=== PATIENT | male | born 1975 | race Caucasian/White ===

== ENCOUNTER 2018-08-06 09:39 | Emergency (ER) | payer SELFPAY ==
[2018-08-06 09:55] VITALS: BP 106/62; PULSE 77; TEMP 98.6; BMI 24.4
--- NOTE | 2018-08-06 10:45 | PDOC ---
History of Present Illness - General Chief Complaint: Pain Stated Complaint: SHOULDER PAIN Time Seen by Provider: 08/06/18 10:11 History Source: Patient Exam Limitations: No Limitations - History of Present Illness Initial Comments: 08/06/18 10:40 42 yr male with c/o stiff neck on the right side radiates to the right top of the shoulder for one week worse when waking up , worse with movement denies trauma. 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 no fever no cough no recent URI . Past History - Travel Traveled outside of the country in the last 30 days: No - Past Medical History Allergies/Adverse Reactions: Allergies Allergy/AdvReac Type Severity Reaction Status Date / Time No Known Allergies Allergy Verified 08/06/18 09:53 Home Medications: Ambulatory Orders Cyclobenzaprine HCl [Flexeril -] 10 mg PO TID PRN #21 tablet 08/06/18 Ibuprofen 800 mg PO TID PRN #20 tablet 08/06/18 COPD: No - Immunization History Immunization Up to Date: Yes - Suicide/Smoking/Psychosocial Hx Smoking History: Current every day smoker Number of Cigarettes Smoked Daily: 6 Information on smoking cessation initiated: No Hx Alcohol Use: No Drug/Substance Use Hx: No Trauma Specific PMHX - Complaint Specific PMHX Arthritis: No Back Injury: No Neck Injury: No Hx Sacro Iliac Joint Dysfunction: No Review of Systems - Review of Systems Able to Perform ROS?: Yes Is the patient limited Liberian proficient: No Constitutional: No: Symptoms Reported HEENTM: No: Symptoms Reported Respiratory: No: Symptoms reported Cardiac (ROS): No: Symptoms Reported ABD/GI: No: Symptoms Reported : No: Symptoms Reported Musculoskeletal: Yes: Symptoms Reported *Physical Exam - Vital Signs Last Vital Signs Temp Pulse Resp BP Pulse Ox 98.6 F 77 18 106/62 98 08/06/18 09:53 08/06/18 09:53 08/06/18 09:53 08/06/18 09:53 08/06/18 09:53 - Physical Exam General Appearance: Yes: Nourished, Appropriately Dressed HEENT: positive: EOMI, MIRANDA, Normal ENT Inspection, TMs Normal, Pharynx Normal Neck: positive: Supple. negative: Tender Respiratory/Chest: positive: Lungs Clear, Normal Breath Sounds. negative: Chest Tender Cardiovascular: positive: Regular Rhythm, Regular Rate Musculoskeletal: positive: Normal Inspection, Decreased Range of Motion, Muscle Spasm (right sternocelmastoid muscle ttp , neg midline tenderness). negative: Vertebral Tenderness Extremity: positive: Normal Capillary Refill, Normal Inspection, Normal Range of Motion. negative: Tender Integumentary: positive: Normal Color, Dry, Warm. negative: Rash Neurologic: positive: Fully Oriented, Alert, Normal Mood/Affect, Normal Response , Motor Strength 5/5 Medical Decision Making - Medical Decision Making 08/06/18 10:42 cc: neck pain, right sided to side of neck pain, stiff worse for one week , reproducable with movement, right shoulder FROM nv intact 5/5 strength mild discomfort radiates to the lateral tricep worse at night and waking up will give ibuprofen now dc with muscle relaxants strict follow up with neurosurgery 08/06/18 18:32 *DC/Admit/Observation/Transfer Diagnosis at time of Disposition: Acute torticollis - Discharge Dispostion Disposition: HOME Condition at time of disposition: Good - Prescriptions Prescriptions: Cyclobenzaprine HCl [Flexeril -] 10 mg PO TID PRN #21 tablet PRN Reason: Muscle Spasms Ibuprofen 800 mg PO TID PRN #20 tablet PRN Reason: Pain - Referrals Referrals: Peewee Dawson MD [Staff Physician] - - Patient Instructions Additional Instructions: follow with the neurosurgeon if pain does not improve make sure your pillow and mattress and new and comfortable, try sleeping without pillow warm compresses to the area of pain take the medication as directed for pain and spasm - Post Discharge Activity
[2018-08-06] MEDS ORDERED: IBUPROFEN 400 MG TABLET (FP) PO STA (10:47)
[2018-08-06] MEDS ORDERED: IBUPROFEN 400 MG TABLET (FP) PO ONE (10:51)
== END 2018-08-06 11:00 | disposition home or self-care (01) ==
LOC: JERFT 09:39
DX: M43.6 Torticollis (principal); F17.210 Nicotine dependence, cigarettes, uncomplicated
CPT/HCPCS: 99281-25